=== PATIENT | male | born 1990 | race Caucasian/White ===

== ENCOUNTER → 2020-12-11 12:03 | Outpatient (BNVA) | payer OTHER, SELFPAY | PROVIDERS: Visit Provider Nurse Practitioner Family | DX: Z02.1 Encounter for pre-employment examination (principal) | CPT/HCPCS: 80307 ==

== ENCOUNTER 2023-02-25 21:44 | Observation (INO) | payer BC, SELFPAY ==
[2023-02-25 22:04] VITALS: BP 174/94; PULSE 100; RESP 20; TEMP 37.3; O2SAT 98; BMI 47.8
[2023-02-25 23:03] LABS: Alanine Aminotransferase 50 U/L (0-41); Albumin Level 3.8 g/dL (3.5-5.2); Alkaline Phosphatase 83 U/L (40-130); Blood Urea Nitrogen 14 mg/dL (6-20); Calcium 8.8 mg/dL (8.5-10.5); Carbon Dioxide 27 mmol/L (22-29); Chloride 96 mmol/L (98-107); Globulin 4.1 g/dL (1.3-4.6); Glomerular Filtration Rate 113.5 mL/min (90-130); Glucose 106 mg/dL (65-115); Lactic Sepsis W/Reflex 2.1 mmol/L (0.5-2.2); Osmolality Calculated 279 mOsm/kg (285-295); Sodium 134 mmol/L (136-145); Total Bilirubin 0.3 mg/dL (0.15-1.2); Total Protein 7.9 g/dL (6.6-8.7)
[2023-02-25 23:10] LABS: Procalcitonin 0.09 ng/mL (0-0.5)
[2023-02-25 23:16] LABS: Anion Gap 14.8 (5-19); Potassium 3.8 mmol/L (3.5-5.1)
[2023-02-25 23:17] LABS: Aspartate Amino Transferase 38 U/L (0-40)
--- NOTE | 2023-02-25 23:43 | ED_ITS ---
Documented by User: LESA Reid 02/26/23 17:09 HPI - Wound/Laceration General: Chief Complaint: Wound/Laceration Stated Complaint: left leg infection Time Seen by Provider: 02/25/23 23:43 History of Present Illness: 32-year-old male patient comes in today with increased pain and redness along with swelling to the left lower leg. Patient reports 1 week ago he had hit his funk against a metal toe hook. Patient had seen a medical provider in [place] and was started on oral antibiotics. Over the past 3 days the wound has increased in size and redness. Patient reports increased pain and discomfort with ambulation. Patient denies diabetes or chronic medical illnesses. Review of pharmaceutical record online noted clindamycin was the antibiotic that was filled on February 22. Associated symptoms: Reports chills, nausea and vomiting (1 episode) Review of Systems Const: Reports: chills GI: Reports: nausea and vomiting (1 episode) Musc: Reports: extremity pain and extremity swelling PFS ED PFSH: Medical History (Updated 02/26/23 @ 15:29 by Arash Huerta MD) Failure of outpatient treatment Morbid obesity with BMI of 45.0-49.9, adult Sleep apnea Surgical History (Updated 02/26/23 @ 02:39 by Zachary Kathleen MD) No pertinent past surgical history Family History (Updated 09/02/21 @ 13:41 by Lesa Gill LPN) Grandmother Heart disease Grandfather Heart disease Mother Hypertension Father Hypertension Social History (Updated 09/02/21 @ 13:41 by Lesa Gill LPN) Smoking and tobacco status: never smoked Alcohol intake: never Substance/Drug Use: never Adopted: No Caregiver/support person: No Lives independently: No Household members: family service: No Current occupational status: employed Sexually active: Yes Do you think of yourself as: Straight/Heterosexual Current gender identity: Male Physical Exam Const: COMMON NORMALS: alert HENMT: COMMON NORMALS: normocephalic HEAD & SCALP: normocephalic Neck/C-Spine: COMMON NORMALS: full ROM Resp: COMMON NORMALS: normal respiratory effort and clear to auscultation bilaterally AUSCULTATION: clear to auscultation bilaterally Cardio: COMMON NORMALS: regular rate and regular rhythm RATE: regular rate RHYTHM: regular rhythm Extremity: COMMON NORMALS: normal to inspection LEFT LOWER EXTREMITY: Yes lower leg (Large area of redness to anterior lower leg with a centralized large bulla) Neuro: SENSORIUM/ORIENTATION: Yes alert Skin: NARRATIVE SKIN EXAM: 7 cm large bulla ovoid with surrounding erythema approximately 30 cm in length and noncircumferential to the lower leg left side Course ED course: 0006, reviewed patient with Dr. Grier who examined the area and recommended CT scan of lower extremity and going ahead and starting broad-spectrum antibiotics. Vital Signs: Vital signs: Vital Signs Temperature 98.0 F 02/26/23 11:37 Pulse Rate 65 02/26/23 15:52 Respiratory Rate 16 02/26/23 15:52 Blood Pressure 138/85 02/26/23 15:52 Pulse Oximetry 99 02/26/23 15:52 Oxygen Delivery Me thod Room Air 02/26/23 15:52 MDM - Wound/Laceration Medical Decision Making Patient came in today due to increased pain along with redness and swelling to the left lower leg. Patient had a injury to the leg where he struck it against a metal toe hook on the vehicle over 1 week ago. Patient noticed increased redness and discomfort and sought medical treatment at a clinic in [place] and was prescribed clindamycin 300 mg 4 times a day on February 22. Patient came in tonight due to increasing pain and discomfort 1 episode of emesis. Differential diagnosis includes not limited to abscess, cellulitis, osteomyelitis. Lab Data 02/26/23 00:37 02/25/23 22:30 Radiology Impressions Lower Extremity CT 02/26/23 00:03 IMPRESSION: 1. There is a 14 cm x 2.5 cm x 5 cm area of edema and fat stranding in the soft tissues anterior to the mid diaphysis of the left tibia, suggestive of cellulitis. There is also a 3.7 cm phlegmon in the same soft tissues. There is no drainable abscess. 2. No acute fracture or osteomyelitis. Venous Duplex 02/26/23 02:36 IMPRESSION: No evidence of deep vein thrombosis. Laboratory Results WBC 12.15 10^3/uL (3.29-11.43) H 02/26/23 00:37 Corrected WBC Cancelled 02/25/23 22:36 RBC 4.64 10^6/uL (3.85-5.65) 02/26/23 00:37 Hgb 12.60 g/dL (11.27-16.99) 02/26/23 00:37 Hct 38.0 % (37-53) 02/26/23 00:37 MCV 81.9 fl (82-101) L 02/26/23 00:37 MCH 27.2 pg (27-33) 02/26/23 00:37 MCHC 33.2 g/dL (30-55) 02/26/23 00:37 RDW 13.3 % (12.1-15.1) 02/26/23 00:37 Plt Count 295 10^3/cmm (157-399) 02/26/23 00:37 MPV 8.9 fL (7.4-10.4) 02/26/23 00:37 Gran % Cancelled 02/25/23 22:36 Neut % (Auto) 75.8 % 02/26/23 00:37 Lymph % (Auto) 12.3 % 02/26/23 00:37 Woodward % (Auto) 10.4 % 02/26/23 00:37 Eos % (Auto) 0.8 % 02/26/23 00:37 Baso % (Auto) 0.3 % 02/26/23 00:37 Neut # (Auto) 9.21 10^3/uL (1.8-7.7) H 02/26/23 00:37 Lymph # (Auto) 1.5 10^3/uL (0.8-4.8) 02/26/23 00:37 Woodward # (Auto) 1.3 10^3/uL (0.2-0.9) H 02/26/23 00:37 Eos # (Auto) 0.1 10^3/uL (0.0-0.8) 02/26/23 00:37 Baso # (Auto) 0.0 10^3/uL (0.0-0.1) 02/26/23 00:37 Absolute Gran (auto) Cancelled 02/25/23 22:36 Nucleated RBC % (auto) 0 % 02/26/23 00:37 Nucleated RBCs # 0.0 /100WBC 02/26/23 00:37 ESR 99 mm/hr (0-10) H 02/26/23 00:37 Sodium 134 mmol/L (136-145) L 02/25/23 22:30 Potassium 3.8 mmol/L (3.5-5.1) 02/25/23 22:30 Chloride 96 mmol/L (98-107) L 02/25/23 22:30 Carbon Dioxide 27 mmol/L (22-29) 02/25/23 22:30 Anion Gap 14.8 (5-19) 02/25/23 22:30 BUN 14 mg/dL (6-20) 02/25/23 22:30 Creatinine 0.8 mg/dL (0.7-1.2) 02/25/23 22:30 GFR Calculation 113.5 mL/min (90-130) 02/25/23 22:30 Glucose 106 mg/dL (65-115) 02/25/23 22:30 Estimat Average Glucose 117 02/26/23 00:37 Hemoglobin A1c 5.7 % (4.0-6.0) 02/26/23 00:37 Calculated Osmolality 279 mOsm/kg (285-295) L 02/25/23 22:30 Lactic Acid 2.1 mmol/L (0.5-2.2) 02/25/23 22:30 Lactic Acid (Sepsis) 0.9 mmol/L (0.5-2.2) 02/26/23 02:09 Calcium 8.8 mg/dL (8.5-10.5) 02/25/23 22:30 Iron 21 ug/dL (59-158) L 02/25/23 22:30 TIBC 218 mcg/dl 02/25/23 22: % Saturation 9.6 % (20-50) L 02/25/23 22: Unsat Iron Binding 197 ug/dL (112-347) 02/25/23 22:30 Total Bilirubin 0.3 mg/dL (0.15-1.2) 02/25/23 22:30 AST 38 U/L (0-40) 02/25/23 22:30 ALT 50 U/L (0-41) H 02/25/23 22:30 Alkaline Phosphatase 83 U/L (40-130) 02/25/23 22:30 C-Reactive Protein 131.5 mg/L (0.0-4.9) H 02/25/23 22:30 Total Protein 7.9 g/dL (6.6-8.7) 02/25/23 22:30 Albumin 3.8 g/dL (3.5-5.2) 02/25/23 22:30 Globulin 4.1 g/dL (1.3-4.6) 02/25/23 22:30 Triglycerides 95 mg/dL (0-150) 02/25/23 22:30 Cholesterol 107 mg/dL (0-200) 02/25/23 22:30 LDL Cholesterol, Calc 58 mg/dL (50-129) 02/25/23 22:30 HDL Cholesterol 30 mg/dL (60-100) L 02/25/23 22:30 LDL/HDL Ratio 1.93 RATIO (0.00-3.22) 02/25/23 22:30 Cholesterol/HDL Ratio 3.57 mg/dL (1.0-5.00) 02/25/23 22:30 Vitamin B12 Cancelled 02/25/23 22:30 Procalcitonin 0.08 ng/mL (0-0.5) 02/25/23 22:30 Procalcitonin 0.09 ng/mL (0-0.5) 02/25/23 22:30 TSH 3.27 uIU/mL (0.27-4.20) 02/25/23 22:30 Discharge Plan Discharge Patient Disposition: Admitted As Inpatient Admit Provider: Zachary Kathleen Clinical Impression: Cellulitis of left leg Condition: Stable Coding Level of Care Code ED Employee Wellness/Fitness Coordinator for Chg Fwd Documented by User: Shola Grier DO 02/26/23 03:28 HPI - Wound/Laceration General: Chief Complaint: Wound/Laceration Stated Complaint: left leg infection Time Seen by Provider: 02/25/23 23:43 PFSH ED PFSH: Medical History (Updated 02/26/23 @ 15:29 by Arash Huerta MD) Failure of outpatient treatment Morbid obesity with BMI of 45.0-49.9, adult Sleep apnea Surgical History (Updated 02/26/23 @ 02:39 by Zachary Kathleen MD) No pertinent past surgical history Family History (Updated 09/02/21 @ 13:41 by Lesa Gill LPN) Grandmother Heart disease Grandfather Heart disease Mother Hypertension Father Hypertension Social History (Updated 09/02/21 @ 13:41 by Lesa Gill LPN) Smoking and tobacco status: never smoked Alcohol intake: never Substance/Drug Use: never Adopted: No Caregiver/support person: No Lives independently: No Household members: family service: No Current occupational status: employed Sexually active: Yes Do you think of yourself as: Straight/Heterosexual Current gender identity: Male Course Vital Signs: Vital signs: Vital Signs Temperature 98.0 F 02/26/23 11:37 Pulse Rate 65 02/26/23 15:52 Respiratory Rate 16 02/26/23 15:52 Blood Pressure 138/85 02/26/23 15:52 Pulse Oximetry 99 02/26/23 15:52 Oxygen Delivery Me thod Room Air 02/26/23 15:52 MDM - Wound/Laceration Medical Decision Making Patient came in today due to increased pain along with redness and swelling to the left lower leg. Patient had a injury to the leg where he struck it against a metal toe hook on the vehicle over 1 week ago. Patient noticed increased redness and discomfort and sought medical treatment at a clinic in [place] and was prescribed clindamycin 300 mg 4 times a day on February 22. Patient came in tonight due to increasing pain and discomfort 1 episode of emesis. Differential diagnosis includes not limited to abscess, cellulitis, osteomyelitis. This patient was originally seen by LESA Montiel.? I agree with his history, evaluation, and treatment. Patient has significant cellulitis that is failed outpatient therapy with clindamycin. White blood cell count is 12. Temperature is 99.1. Lactic acid is only 2.1 but CRP 131 sed rate is 99. He has received IV Zosyn and vancomycin in the ER. He will be admitted for cellulitis with failure of outpatient therapy. CT does not show a drainable abscess or any sign of necrotizing fasciitis. Lab Data 02/26/23 00:37 02/25/23 22:30 Radiology Impressions Lower Extremity CT 02/26/23 00:03 IMPRESSION: 1. There is a 14 cm x 2.5 cm x 5 cm area of edema and fat stranding in the soft tissues anterior to the mid diaphysis of the left tibia, suggestive of cellulitis. There is also a 3.7 cm phlegmon in the same soft tissues. There is no drainable abscess. 2. No acute fracture or osteomyelitis. Venous Duplex 02/26/23 02:36 IMPRESSION: No evidence of deep vein thrombosis. Laboratory Results WBC 12.15 10^3/uL (3.29-11.43) H 02/26/23 00:37 Corrected WBC Cancelled 02/25/23 22:36 RBC 4.64 10^6/uL (3.85-5.65) 02/26/23 00:37 Hgb 12.60 g/dL (11.27-16.99) 02/26/23 00:37 Hct 38.0 % (37-53) 02/26/23 00:37 MCV 81.9 fl (82-101) L 02/26/23 00:37 MCH 27.2 pg (27-33) 02/26/23 00:37 MCHC 33.2 g/dL (30-55) 02/26/23 00:37 RDW 13.3 % (12.1-15.1) 02/26/23 00:37 Plt Count 295 10^3/cmm (157-399) 02/26/23 00:37 MPV 8.9 fL (7.4-10.4) 02/26/23 00:37 Gran % Cancelled 02/25/23 22:36 Neut % (Auto) 75.8 % 02/26/23 00:37 Lymph % (Auto) 12.3 % 02/26/23 00:37 Woodward % (Auto) 10.4 % 02/26/23 00:37 Eos % (Auto) 0.8 % 02/26/23 00:37 Baso % (Auto) 0.3 % 02/26/23 00:37 Neut # (Auto) 9.21 10^3/uL (1.8-7.7) H 02/26/23 00:37 Lymph # (Auto) 1.5 10^3/uL (0.8-4.8) 02/26/23 00:37 Woodward # (Auto) 1.3 10^3/uL (0.2-0.9) H 02/26/23 00:37 Eos # (Auto) 0.1 10^3/uL (0.0-0.8) 02/26/23 00:37 Baso # (Auto) 0.0 10^3/uL (0.0-0.1) 02/26/23 00:37 Absolute Gran (auto) Cancelled 02/25/23 22:36 Nucleated RBC % (auto) 0 % 02/26/23 00:37 Nucleated RBCs # 0.0 /100WBC 02/26/23 00:37 ESR 99 mm/hr (0-10) H 02/26/23 00:37 Sodium 134 mmol/L (136-145) L 02/25/23 22:30 Potassium 3.8 mmol/L (3.5-5.1) 02/25/23 22:30 Chloride 96 mmol/L (98-107) L 02/25/23 22:30 Carbon Dioxide 27 mmol/L (22-29) 02/25/23 22:30 Anion Gap 14.8 (5-19) 02/25/23 22:30 BUN 14 mg/dL (6-20) 02/25/23 22:30 Creatinine 0.8 mg/dL (0.7-1.2) 02/25/23 22:30 GFR Calculation 113.5 mL/min (90-130) 02/25/23 22:30 Glucose 106 mg/dL (65-115) 02/25/23 22:30 Estimat Average Glucose 117 02/26/23 00:37 Hemoglobin A1c 5.7 % (4.0-6.0) 02/26/23 00:37 Calculated Osmolality 279 mOsm/kg (285-295) L 02/25/23 22:30 Lactic Acid 2.1 mmol/L (0.5-2.2) 02/25/23 22:30 Lactic Acid (Sepsis) 0.9 mmol/L (0.5-2.2) 02/26/23 02:09 Calcium 8.8 mg/dL (8.5-10.5) 02/25/23 22:30 Iron 21 ug/dL (59-158) L 02/25/23 22:30 TIBC 218 mcg/dl 02/25/23 22:30 % Saturation 9.6 % (20-50) L 02/25/23 22:30 Unsat Iron Binding 197 ug/dL (112-347) 02/25/23 22:30 Total Bilirubin 0.3 mg/dL (0.15-1.2) 02/25/23 22:30 AST 38 U/L (0-40) 02/25/23 22: ALT 50 U/L (0-41) H 02/25/23 22:30 Alkaline Phosphatase 83 U/L (40-130) 02/25/23 22:30 C-Reactive Protein 131.5 mg/L (0.0-4.9) H 02/25/23 22:30 Total Protein 7.9 g/dL (6.6-8.7) 02/25/23 22: Albumin 3.8 g/dL (3.5-5.2) 02/25/23 22: Globulin 4.1 g/dL (1.3-4.6) 02/25/23 22:30 Triglycerides 95 mg/dL (0-150) 02/25/23 22: Cholesterol 107 mg/dL (0-200) 02/25/23 22:30 LDL Cholesterol, Calc 58 mg/dL (50-129) 02/25/23 22: HDL Cholesterol 30 mg/dL (60-100) L 02/25/23 22:30 LDL/HDL Ratio 1.93 RATIO (0.00-3.22) 02/25/23 22: Cholesterol/HDL Ratio 3.57 mg/dL (1.0-5.00) 02/25/23 22:30 Vitamin B12 Cancelled 02/25/23 22:30 Procalcitonin 0.08 ng/mL (0-0.5) 02/25/23 22:30 Procalcitonin 0.09 ng/mL (0-0.5) 02/25/23 22:30 TSH 3.27 uIU/mL (0.27-4.20) 02/25/23 22:30 All radiology interpretation(s) finalized by discharge Discharge Plan Discharge Patient Disposition: Admitted As Inpatient Admit Provider: Zachary Kathleen Clinical Impression: Cellulitis of left leg Condition: Stable Coding Level of Care Code ED Employee Wellness/Fitness Coordinator for Arleneg Sandhya
[2023-02-26] VITALS (13 sets, daily range): BP systolic 130–142; BP diastolic 75–85; PULSE 65–95; RESP 16–18; TEMP 36.4–37; O2SAT 94–99
--- NOTE | 2023-02-26 00:03 | CTR_ITS ---
PROCEDURE INFORMATION: Exam: CT Left Lower Extremity With Contrast; Lower Leg Exam date and time: 02/26/2023 12:58 AM Age: 32 years old Clinical indication: Swelling, leg or foot; Patient HX: Abscess with redness and swelling to mid tib/fib anterior aspect. TECHNIQUE: Imaging protocol: CT of the left lower extremity with intravenous contrast was performed. Exam focused on the lower leg. Radiation optimization: All CT scans at this facility use at least one of these dose optimization techniques: automated exposure control; mA and/or kV adjustment per patient size (includes targeted exams where dose is matched to clinical indication); or iterative reconstruction. Contrast material: OMNI 350; Contrast volume: 100 ml; Contrast route: INTRAVENOUS (IV); REPORTING DATA: Count of CT and Cardiac NM exams in prior 12 months: This patient has received 0 known CTs and 0 known cardiac nuclear medicine studies in the 12 months prior to the current study. COMPARISON: No relevant prior studies available. RADIATION DOSE METRICS: Total DLP (mGy-cm): 1692.06 FINDINGS: Bones/joints: There is no acute fracture, subluxation, dislocation, bone erosion or periosteal reaction. Soft tissues: There is a 14 cm x 2.5 cm x 5 cm area of edema and fat stranding in the soft tissues anterior to the mid diaphysis of the left tibia, suggestive of cellulitis, There is also a 3.7 cm phlegmon in the same soft tissues. There is no drainable abscess. CT/CT lower leg LT w con [id number] IMPRESSION: 1. There is a 14 cm x 2.5 cm x 5 cm area of edema and fat stranding in the soft tissues anterior to the mid diaphysis of the left tibia, suggestive of cellulitis. There is also a 3.7 cm phlegmon in the same soft tissues. There is no drainable abscess. 2. No acute fracture or osteomyelitis.
[2023-02-26 00:28] LABS: Reflex Lactate Order REFLEX LACTIC ORDERD
[2023-02-26 00:45] LABS: Basophils % 0.3 %; Eosinophils # 0.1 10^3/uL (0.0-0.8); Eosinophils % 0.8 %; Lymphocytes # 1.5 10^3/uL (0.8-4.8); Lymphocytes % 12.3 %; Mean Corpuscular HGB Conc 33.2 g/dL (30-55); Mean Corpuscular Hemoglobin 27.2 pg (27-33); Mean Corpuscular Volume 81.9 fl (82-101); Mean Platelet Volume 8.9 fL (7.4-10.4); Monocytes # 1.3 10^3/uL (0.2-0.9); Monocytes % 10.4 %; Neutrophils # 9.21 10^3/uL (1.8-7.7); Neutrophils % 75.8 %; Nucleated Red Blood Cells % 0 %; Platelet Count 295 10^3/cmm (157-399); Red Blood Count 4.64 10^6/uL (3.85-5.65); Red Cell Distribution Width 13.3 % (12.1-15.1); White Blood Count 12.15 10^3/uL (3.29-11.43)
[2023-02-26] MEDS: iohexol 350 mg/mL 500 mL Btl (per mL) IV (01:02)
[2023-02-26] MEDS: piperacillin-tazobactam 3.375 GM in sodium chloride 0.9% (plus) 50 ML IV ×3 (01:23→17:59)
[2023-02-26] MEDS: ketorolac 30 mg/mL INJ 15 MG IVP (01:47)
[2023-02-26] MEDS: morphine 4 mg/mL SDV 1 mL IVP (01:47)
[2023-02-26] MEDS: ondansetron 2 mg/ML SDV 2 mL 4 MG IVP (01:48)
[2023-02-26] MEDS: vancomycin 1,000 MG in sodium chloride 0.9% 250 ML 250 MG IV (01:48)
[2023-02-26 02:14] LABS: Erythrocyte Sedimentation Rate 99 mm/hr (0-10)
[2023-02-26 02:28] LABS: C Reactive Protein 131.5 mg/L (0.0-4.9)
--- NOTE | 2023-02-26 02:36 | USR_ITS ---
PROCEDURE INFORMATION: Exam: US Duplex Left Lower Extremity Veins, Limited Exam date and time: 02/26/2023 7:04 AM Age: 32 years old Clinical indication: Pain; Leg, lower; Left; Additional info: Swelling TECHNIQUE: Imaging protocol: Real-time duplex ultrasound of the left extremity with 2-D frey scale, color Doppler flow and spectral waveform analysis including responses to compression and other maneuvers (when performed) with image documentation. Limited exam focused on the left lower extremity veins. COMPARISON: CT lower leg LT w con [id number] 02/26/2023 12:58 AM FINDINGS: Left deep veins: Unremarkable. The common femoral, femoral, proximal profunda femoral and popliteal veins are patent without thrombus. Normal Doppler waveforms. Normal compressibility and/or augmentation response. Superficial veins: Unremarkable. Saphenofemoral junction is patent without thrombus. Soft tissues: Unremarkable. US/CV venous duplex [facility] [id number] IMPRESSION: No evidence of deep vein thrombosis.
[2023-02-26 02:37] LABS: Lactic Acid level (Lactate) 0.9 mmol/L (0.5-2.2)
--- NOTE | 2023-02-26 02:38 | PM.HP ---
Providers/Chief Complaint Chief Complaint: left leg infection History of Present Illness Basilio Aly is a 32 year old male with a past medical history of morbid obesity, who presents to [facility] emergency room for left leg anterior funk erythema, swelling, tenderness, warmth. Patient tells me that about a week ago he hit his funk against a metal toe , he saw his primary care provider and was started on clindamycin, has been taking clindamycin for the last 4 days however he has developed increasing erythema, swelling, tenderness, warmth over the location. Also does report subjective fevers and chills, no nausea, vomiting, abdominal pain. Review of Systems Const: Denies: fever(s) Card: Denies: chest pain Resp: Denies: dyspnea GI: Denies: abdominal pain Medications/Allergies Home Medications Medication Instructions Recorded Confirmed Last Taken Type No Known Home Medications 09/02/21 09/02/21 Unknown History Allergies Allergy/AdvReac Type Severity Reaction Status Date / Time No Known Allergies Allergy Verified 09/02/21 13:39 PFSH Acute PFSH: Medical History (Updated 02/26/23 @ 02:40 by Zachary Kathleen MD) Morbid obesity with BMI of 45.0-49.9, adult Surgical History (Updated 02/26/23 @ 02:39 by Zachary Kathleen MD) No pertinent past surgical history Family History (Updated 09/02/21 @ 13:41 by Lesa Gill LPN) Grandmother Heart disease Grandfather Heart disease Mother Hypertension Father Hypertension Social History (Updated 09/02/21 @ 13:41 by Lesa Gill LPN) Smoking and tobacco status: never smoked Alcohol intake: never Substance/Drug Use: never Adopted: No Caregiver/support person: No Lives independently: No Household members: family service: No Current occupational status: employed Sexually active: Yes Do you think of yourself as: Straight/Heterosexual Current gender identity: Male Vitals/I&O/Wt Last Vital Signs Temp 99.1 F 02/25/23 22:04 Pulse 92 02/26/23 01:59 Resp 18 02/26/23 01:59 BP 130/75 02/26/23 01:59 Pulse Ox 97 02/26/23 01:59 O2 Del Method Room Air 02/26/23 01:59 Weight last 48 hrs Weight 146.964 kg Physical Exam Const: COMMON NORMALS: no acute distress and patient oriented x3 HENMT: COMMON NORMALS: normocephalic HEAD & SCALP: normocephalic Neck/C-Spine: COMMON NORMALS: no JVD Resp: COMMON NORMALS: normal respiratory effort, No retractions, No use of accessory muscles and clear to auscultation bilaterally AUSCULTATION: clear to auscultation bilaterally Cardio: COMMON NORMALS: regular rate, regular rhythm, S1 normal heart sound present and S2 normal heart sound present RATE: regular rate RHYTHM: regular rhythm HEART SOUNDS: S1 normal heart sound present and S2 normal heart sound present GI: COMMON NORMALS: Normal to inspection, nondistended, normoactive bowel sounds present, Soft to palpation and non-tender Extremity: COMMON NORMALS: no pedal edema NARRATIVE EXTREMITY EXAM: Left leg erythema, swelling, area of induration, measuring 10 x 10 cm, left anterior funk Neuro: COMMON NORMALS: patient oriented x3 Psych: COMMON NORMALS: mental status grossly normal Data 02/26/23 00:37 02/25/23 22:30 Micro: Microbiology 02/25/23 00:00 Blood Culture - Preliminary Blood SPECIMEN COLLECTED 02/25/23 23:53 Blood Culture - Preliminary Blood SPECIMEN COLLECTED A&P Assessment and plan (1) Cellulitis of left leg: Plan Cellulitis of left leg -CT scan CT/CT lower leg LT w con [id number] IMPRESSION: 1. ? There is a 14 cm x 2.5 cm x 5 cm area of edema and fat stranding in the soft tissues anterior to the mid diaphysis of the left tibia, suggestive of cellulitis.? There is also a 3.7 cm phlegmon in the same soft tissues. There is no drainable abscess. 2. ? No acute fracture or osteomyelitis. -ESR 99, CRP 131.5 Plan -Admit to [facility] -Follow blood cultures -Continue vancomycin, Zosyn -Monitor clinical status, will consider consulting general surgery based on clinical progress for possible debridement -We will have to find out when patient's last tetanus shot was, will have to consider Tdap -Venous ultrasound for DVT -Full code -Lovenox for DVT prophylaxis Attestations Medical Necessity Statement*: Patient requires hospitalization, inpatient, greater than 2 midnights, for cellulitis left leg Diagnoses Cellulitis of left leg L03.116
--- NOTE | 2023-02-26 02:51 | PC.NURSE ---
Report called to CANELO Piña on Med-Surg. All questions and concerns addressed at time of report.
[2023-02-26] MEDS: sodium chloride 0.9% 1,000 ML 75 ML IV ×2 (03:24→18:00)
[2023-02-26] MEDS: enoxaparin 40 mg/0.4 mL Syringe SUBCUT (03:24)
[2023-02-26] MEDS: pantoprazole 40 mg SDV IVP (03:29)
[2023-02-26 03:42] LABS: Estmated Average Glucose 117; Hemoglobin A1C 5.7 % (4.0-6.0)
[2023-02-26 04:09] LABS: Chol HDL Ratio 3.57 mg/dL (1.0-5.00); Cholesterol 107 mg/dL (0-200); HDL Cholesterol 30 mg/dL (60-100); LDL Cholesterol Calculated 58 mg/dL (50-129); LDL HDL Ratio 1.93 RATIO (0.00-3.22); Thyroid Stimulating Hormone 3.27 uIU/mL (0.27-4.20); Triglycerides 95 mg/dL (0-150)
[2023-02-26] MEDS: vancomycin 2,000 MG/400 ML PIGGYBACK 200 MG IV ×3 (06:29→22:14)
[2023-02-26] MEDS: acetaminophen 325 mg Tablet 650 MG PO (09:06)
--- NOTE | 2023-02-26 12:25 | P.PN_ITS ---
Subjective Subjective: Admitted overnight. H&P and labs. Patient laying comfortably in bed. Denies any nausea, vomiting, headache. Lab work appreciated for leukocytosis of 12.5, hemoglobin of 12.6, CBC showing mild hyponatremia 134, stable creatinine 0.8, A1c of 5.7 patient has remained hemodynamically stable and afebrile since admission. Vitals/I&O/Wt Last Vital Signs Temp 98.0 F 02/26/23 11:37 Pulse 82 02/26/23 11:37 Resp 16 02/26/23 11:37 BP 130/81 02/26/23 11:37 Pulse Ox 96 02/26/23 11:37 O2 Del Method Room Air 02/26/23 11:37 02/25/23 02/26/23 02/26/23 22:59 06:59 14:59 Intake Total 300 / 300 520 / 520 Output Total 500 / 500 Balance -200 / -200 520 / 520 Weight last 48 hrs Weight 146.964 kg Physical Exam Const: COMMON NORMALS: no acute distress and patient oriented x3 HENMT: COMMON NORMALS: normocephalic HEAD & SCALP: normocephalic Neck/C-Spine: COMMON NORMALS: no JVD Resp: COMMON NORMALS: normal respiratory effort, No retractions, No use of accessory muscles and clear to auscultation bilaterally AUSCULTATION: clear to auscultation bilaterally Cardio: COMMON NORMALS: no JVD, regular rate, regular rhythm, S1 normal heart sound present and S2 normal heart sound present RATE: regular rate RHYTHM: regular rhythm HEART SOUNDS: S1 normal heart sound present and S2 normal heart sound present GI: COMMON NORMALS: Normal to inspection, nondistended, normoactive bowel sounds present, Soft to palpation and non-tender PALPATION: Yes Soft to palpation Extremity: COMMON NORMALS: no pedal edema NARRATIVE EXTREMITY EXAM: Left leg erythema, swelling, area of induration, measuring 10 x 10 cm, left anterior funk Neuro: COMMON NORMALS: patient oriented x3 Psych: COMMON NORMALS: mental status grossly normal Skin: OTHER: Data 02/26/23 00:37 02/25/23 22:30 Micro: Microbiology 02/25/23 00:00 Blood Culture - Preliminary Blood SPECIMEN COLLECTED 02/25/23 23:53 Blood Culture - Preliminary Blood SPECIMEN COLLECTED A&P Assessment and plan (1) Cellulitis of left leg: (2) Failure of outpatient treatment: Plan Cellulitis of left leg: Significant. Failure to outpatient treatment. Appreciate CT leg results with concerning for significant cellulitis and possible phlegmon without any abscess to drain. Negative for osteomyelitis. Continue with empiric vancomycin and Zosyn. Check MRSA swab. If does not improve will consider surgical consultation for possible I&D A1c 5.7 Full code Lovenox for DVT prophylaxis Regular diet Attestations Medical Necessity Statement*: Requires further hospitalization for management of significant cellulitis with phlegmon Diagnoses Cellulitis of left leg L03.116 Failure of outpatient treatment Z78.9
[2023-02-26 13:25] LABS: Iron 21 ug/dL (59-158)
[2023-02-26 13:32] LABS: Procalcitonin 0.08 ng/mL (0-0.5)
[2023-02-26 13:35] LABS: Percent Saturation 9.6 % (20-50); Total Iron Binding Capacity 218 mcg/dl; Unsaturated Iron Binding 197 ug/dL (112-347)
[2023-02-26] MEDS: morphine 4 mg/mL SDV 1 mL 2 MG IVP (15:00)
[2023-02-27] VITALS (7 sets, daily range): BP systolic 130–165; BP diastolic 75–106; PULSE 71–96; RESP 14–18; TEMP 36.3–37.1; O2SAT 97–99
[2023-02-27] MEDS: morphine 4 mg/mL SDV 1 mL 2 MG IVP (00:31)
[2023-02-27] MEDS: enoxaparin 40 mg/0.4 mL Syringe SUBCUT (02:35)
[2023-02-27] MEDS: piperacillin-tazobactam 3.375 GM in sodium chloride 0.9% (plus) 50 ML IV ×2 (02:35→16:15)
[2023-02-27] MEDS: pantoprazole 40 mg SDV IVP (02:35)
[2023-02-27 04:35] LABS: Basophils % 0.3 %; Eosinophils # 0.1 10^3/uL (0.0-0.8); Eosinophils % 1.6 %; Hematocrit 39.8 % (37-53); Lymphocytes # 1.4 10^3/uL (0.8-4.8); Lymphocytes % 16.2 %; Mean Corpuscular HGB Conc 31.9 g/dL (30-55); Mean Corpuscular Hemoglobin 26.8 pg (27-33); Mean Platelet Volume 8.6 fL (7.4-10.4); Monocytes # 0.8 10^3/uL (0.2-0.9); Monocytes % 9.6 %; Neutrophils % 70.6 %; Nucleated Red Blood Cells % 0 %; Platelet Count 274 10^3/cmm (157-399); Red Blood Count 4.74 10^6/uL (3.85-5.65); Red Cell Distribution Width 13.5 % (12.1-15.1); White Blood Count 8.65 10^3/uL (3.29-11.43)
[2023-02-27 04:52] LABS: Alanine Aminotransferase 41 U/L (0-41); Albumin Level 3.4 g/dL (3.5-5.2); Alkaline Phosphatase 74 U/L (40-130); Aspartate Amino Transferase 21 U/L (0-40); Blood Urea Nitrogen 10 mg/dL (6-20); Calcium 8.5 mg/dL (8.5-10.5); Carbon Dioxide 24 mmol/L (22-29); Chloride 99 mmol/L (98-107); Globulin 3.6 g/dL (1.3-4.6); Glomerular Filtration Rate 113.5 mL/min (90-130); Glucose 100 mg/dL (65-115); Magnesium 2.4 mg/dL (1.7-2.3); Osmolality Calculated 271 mOsm/kg (285-295); Phosphorus 3.4 mg/dL (2.5-4.5); Sodium 131 mmol/L (136-145); Total Bilirubin 0.4 mg/dL (0.15-1.2)
[2023-02-27 05:16] LABS: Folate Level 9.6 ng/mL (4.5-32.2); Vancomycin Trough 20.7 ug/mL (10-15)
[2023-02-27] MEDS: vancomycin 2,000 MG/400 ML PIGGYBACK 200 MG IV (10:07)
--- NOTE | 2023-02-27 17:22 | P.CONIM_ITS ---
Providers/Reason For Consult Consulting Physician/Specialty*: Orthopedics Reason for Consult*: Left leg pain Attending Physician: Rivera Epperson History of Present Illness History of Present Illness Basilio Aly is a 32 year old male who presented to the emergency room on 02/25/2023 due to increased left leg pain and swelling. Describes an event where approximately a 1 week ago struck a metal object with his left funk. [place] immediate pain that was sharp stabbing in nature he states that over the last week he has had increased pain and swelling with an area of a blister that formed on the front portion of his left funk region. He presented to the emergency room where the hospitalist team admitted him orthopedics was consulted and he was evaluated in room 267. Continued to have pain and swelling in the left leg region. Had a blister formation that he states has gotten bigger since the injury. He denies any joint pains denies any falls any loss of conscious in the injury. He just denies any fevers at home but the pain has increased. Upon present presenting to the emergency room he was then admitted for more definitive management. Orthopedics was consulted. Describes pain in the left leg any movement makes it much worse. He has had area of blistering to the anterior aspect of the left tibial region. Denies any ankle pain knee pain denies any hip pain. Review of Systems Const: Denies: fever(s) Card: Denies: chest pain Resp: Denies: dyspnea GI: Denies: abdominal pain Medications/Allergies Home Medications Medication Instructions Recorded Confirmed Last Taken Type clindamycin HCl 300 mg capsule 300 mg PO QID 02/26/23 02/26/23 02/25/23 History ibuprofen 800 mg tablet 800 mg PO TID PRN Pain 02/26/23 02/26/23 Unknown History Allergies Allergy/AdvReac Type Severity Reaction Status Date / Time No Known Allergies Allergy Verified 02/26/23 10:19 Current Medications Generic Name Dose Route Start Last Admin Trade Name Freq PRN Reason Stop Dose Admin Acetaminophen 650 mg 02/26/23 03:09 02/26/23 09:06 Acetaminophen 325 Mg Tablet PO 650 mg Q6H PRN Administration Mild/Mod Pain Or Temp >/= 101 Enoxaparin Sodium 40 mg 02/26/23 03:09 02/27/23 02:35 Enoxaparin 40 Mg/0.4 Ml Syringe SUBCUT 40 mg Q24H KEITH Administration Sodium Chloride 1,000 mls @ 75 mls/hr 02/26/23 03:09 02/26/23 18:00 Sodium Chloride 0.9% IV 75 mls/hr .[id number] KEITH Administration Piperacillin Sod/Tazobactam 50 mls @ 12.5 mls/hr 02/26/23 09:30 02/27/23 16:15 Sod 3.375 gm/ Sodium Chloride IV 12.5 mls/hr Q8H KEITH Administration Vancomycin/PEG/NADA/Lysine/Water 2,000 mg in 400 mls @ 200 mls/hr 02/27/23 10:00 02/27/23 16:17 Vancocin IV Infused Q12H KEITH Infusion Morphine Sulfate 2 mg 02/26/23 03:09 02/27/23 00:31 Morphine 4 Mg/Ml Sdv 1 Ml IVP 2 mg Q4H PRN Administration SEVERE PAIN Pantoprazole Sodium 40 mg 02/26/23 03:09 02/27/23 02:35 Pantoprazole 40 Mg Sdv IVP 40 mg Q24H KEITH Administration PFSH Acute PFSH: Medical History (Updated 02/26/23 @ 15:29 by Arash Huerta MD) Failure of outpatient treatment Morbid obesity with BMI of 45.0-49.9, adult Sleep apnea Surgical History (Updated 02/26/23 @ 02:39 by Zachary Kathleen MD) No pertinent past surgical history Family History (Updated 09/02/21 @ 13:41 by Lesa Gill LPN) Grandmother Heart disease Grandfather Heart disease Mother Hypertension Father Hypertension Social History (Updated 09/02/21 @ 13:41 by Lesa Gill LPN) Smoking and tobacco status: never smoked Alcohol intake: never Substance/Drug Use: never Adopted: No Caregiver/support person: No Lives independently: No Household members: family service: No Current occupational status: employed Sexually active: Yes Do you think of yourself as: Straight/Heterosexual Current gender identity: Male Vitals/I&O/Wt Last Vital Signs Temp 98.0 F 02/27/23 16:00 Pulse 88 02/27/23 16:00 Resp 17 02/27/23 16:00 BP 145/85 02/27/23 16:00 Pulse Ox 97 02/27/23 16:00 O2 Del Method Room Air 02/27/23 16:00 02/27/23 02/27/23 02/27/23 06:59 14:59 22:59 Intake Total 400 / 2900 770 / 770 400 / 1170 Output Total 1225 / 3475 1999 Balance -825 / -575 -1230 / -1230 400 / -830 Weight last 48 hrs Weight 324 lb Physical Exam Narrative: Patient is alert and orient x3 is good general appearance normal mood and affect is morbidly obese. Has obvious swelling with redness in area of blistering to the anterior aspect of the mid tibial region. Appears to have purulence in the blister with some evidence of purulence. Large area of redness consistent with cellulitis to the left tibia. He has 2+ edema in his left foot he is able to dorsiflex plantarflex he can wiggle all digits he has normal sensation light touch. Dorsalis pedis posterior pulses are palpable. He is able to flex and extend the left knee without any problems he has negative logroll. He has full range of motion of the right lower extremity at the hip knee and ankle. Normal station light touch. He does have 1+ edema in the right lower extremity as well. He has no palpable pain in the lumbar thoracic or cervical spine full range of motion of both upper extremities can flex and extend laterally bend and rotate cervical spine without any problems. No palpable pain in the shoulder elbow or wrist hands warm good cap refill radial pulses are palpable. HENMT: COMMON NORMALS: normocephalic and atraumatic HEAD & SCALP: normocephalic and atraumatic Resp: COMMON NORMALS: normal respiratory effort Cardio: COMMON NORMALS: regular rate and regular rhythm RATE: regular rate RHYTHM: regular rhythm GI: COMMON NORMALS: Soft to palpation and non-tender PALPATION: Yes Soft to palpation : COMMON NORMALS: Yes no CVA tenderness BLADDER/KIDNEY EXAM: Yes no CVA tenderness Back/Pelvis: COMMON NORMALS: no CVA tenderness Psych: COMMON NORMALS: mental status grossly normal Data 02/27/23 04:11 02/27/23 04:11 Micro: Microbiology 02/25/23 00:00 Blood Culture - Preliminary Blood NEGATIVE TO DATE 02/25/23 23:53 Blood Culture - Preliminary Blood NEGATIVE TO DATE Other CT: Radiologist's impression: CT/CT lower leg LT w con [id number] IMPRESSION: 1. ? There is a 14 cm x 2.5 cm x 5 cm area of edema and fat stranding in the soft tissues anterior to the mid diaphysis of the left tibia, suggestive of cellulitis.? There is also a 3.7 cm phlegmon in the same soft tissues. There is no drainable abscess. 2. ? No acute fracture or osteomyelitis. A&P Assessment and plan (1) Cellulitis of left leg: At this point appears that he has a blister to the anterior aspect of his left leg with cellulitis. Would defer to the medicine team for antibiotic treatment. Consideration of draining of the blister with application of a Betadine dressing to clean the the area. Would recommend a wet-to-dry dressing to keep clean continue IV antibiotics for cellulitis treatment. At this point would not recommend any surgical intervention. Orthopedics will be available should anything change. More than 50% of the time spent with the patient today involved coordination of care, counseling and discussion of conservative versus surgical treatment options. Total amount of time spent with the patient was 32 minutes. Coding Level of Care Code Acute Code for Chg Fwd Diagnoses Cellulitis of left leg L03.116 Time Spent (min) 32
--- NOTE | 2023-02-27 18:40 | PC.NURSE ---
PT EDUC ON AMA PROCESS. RISKS AND BENEFITS OF LEAVING AND STAYING TO CONTINUE WITH [facility]X THERAPY.
--- NOTE | 2023-02-27 18:49 | PM.PN ---
Subjective Subjective: Swelled area amid cellulitis had some drainage overnight with yellow-green appearing fluid from the superior pole. Discussed with him request for assessment by surgery with consideration of repeat imaging and/or I&D with suspected maturation into an abscess which may in that case benefit from drainage, although initially there was no drainable collection. Requested consultation with orthopedics who came to see him, however, he had stated to nursing staff and on my secondary visit confirms that he is decided to transfer for further care and requesting specifically for [facility] due to his health insurance. Discussed with him that transfer may not be immediately available especially if there are no beds and discussed with him orthopedic consultation. He verbalized understanding and states that he had decided to proceed transfer for further care instead. Vitals/I&O/Wt Last Vital Signs Temp 98.0 F 02/27/23 16:00 Pulse 88 02/27/23 16:00 Resp 17 02/27/23 16:00 BP 145/85 02/27/23 16:00 Pulse Ox 97 02/27/23 16:00 O2 Del Method Room Air 02/27/23 16:00 02/27/23 02/27/23 02/27/23 06:59 14:59 22:59 Intake Total 400 / 2900 770 / 770 1880 / 2650 Output Total 1225 / 3475 1999 / 1999 600 / 2600 Balance -825 / -575 -1230 / -1230 1280 / 50 Weight last 48 hrs Weight 146.964 kg Physical Exam Const: COMMON NORMALS: patient oriented x3 and alert GENERAL APPEARANCE: cooperative NUTRITIONAL APPEARANCE: obese ORIENTATION/CONSCIOUSNESS: Yes awake HENMT: COMMON NORMALS: oropharynx normal Neck/C-Spine: COMMON NORMALS: no JVD Resp: COMMON NORMALS: normal respiratory effort and clear to auscultation bilaterally AUSCULTATION: clear to auscultation bilaterally Cardio: COMMON NORMALS: no JVD, regular rhythm, S1 normal heart sound present, S2 normal heart sound present and No murmurs present (Cardio) RHYTHM: regular rhythm HEART SOUNDS: S1 normal heart sound present and S2 normal heart sound present GI: COMMON NORMALS: Normal to inspection, nondistended, normoactive bowel sounds present, Soft to palpation and non-tender PALPATION: Yes Soft to palpation Extremity: COMMON NORMALS: no joint enlargement and no pedal edema Neuro: COMMON NORMALS: patient oriented x3 and moves all extremities SENSORIUM/ORIENTATION: Yes alert Skin: NARRATIVE SKIN EXAM: Erythema, induration of anterior L lower leg, with central area of circumscribed swelling about 10cm by 15 cm, currently without active drainage, but dried yellowish stain on bedsheet. Data 02/27/23 04:11 02/27/23 04:11 Micro: Microbiology 02/25/23 00:00 Blood Culture - Preliminary Blood NEGATIVE TO DATE 02/25/23 23:53 Blood Culture - Preliminary Blood NEGATIVE TO DATE A&P Assessment and plan (1) Cellulitis of left leg: (2) Failure of outpatient treatment: Plan Cellulitis of left leg: moderate to large area of cellulitis and phlegmon of the left lower extremity with surrounding cellulitis around the central area of swelling, nonpurulent initially, no fluid collection initial CT. He does report some drainage from proximal aspect of yellowish/greenish fluid overnight. discussed with orthopedics and requested consultation, although patient request as he wants to transfer to continue care at [facility] instead. Discussed with him that transfer may not be immediately available especially if there is no bed. He verbalized understanding still wants to proceed to continue care there. called [facility], no beds available in [place] or [place]. Call back in the afternoon no beds in [place] either, no answer in [place]. For now continue IV antibiotics. He understands that in case of evolution of the infection and abscess, would benefit from drainage. We will have to revisit with [facility] and with him. The area is still significant, and quite significant swelling, at this point not safe to discharge home may be at risk of worsening local infection, distant spread/systemic infection. Failure of outpatient treatment. Obtain wound culture if any additional drainage. Reviewed CBC, CMP. Leukocytosis has resolved. Reviewed blood culture. Reviewed Vanco trough, just borderline high. reassess chemistry, at risk of CHRISTAL. A1c Reviewed. Discussed with case management. Full code Lovenox for DVT prophylaxis Regular diet Attestations Medical Necessity Statement*: Continue admission for assessment management of moderate to large area of cellulitis, central phlegmon, may be progressing to abscess, continue IV antibiotics, may end up requiring I&D. Wants to transfer to [facility], so far no beds available. Diagnoses Cellulitis of left leg L03.116 Failure of outpatient treatment Z78.9
--- NOTE | 2023-02-27 20:09 | PC.NURSE ---
AMA: Went into room to take IV out and have the patient sign AMA paperwork. Patient refused to sign but allowed business writer to remove IV. Ambulated with family out of the building.
[2023-02-28 07:31] LABS: Vitamin B12 (Cobalamin) 638 pg/mL (200-1100)
== END 2023-02-27 20:11 | disposition left against medical advice (07) ==
LOC: ER 02-26 01:03 → MEDSURG 02-26 03:26
PROVIDERS: Emergency Medicine; Student in an Organized Health Care Education/Training Program; Admitting Provider Family Medicine; Emergency Provider Emergency Medicine; Visit Provider Internal Medicine
DX: L03.116 Cellulitis of left lower limb (principal); E66.01 Morbid (severe) obesity due to excess calories; Z68.42 Body mass index [BMI] 45.0-49.9, adult; G47.30 Sleep apnea, unspecified
CPT/HCPCS: 36415; 73701; 80053; 80061; 80202; 82607; 82746; 83036; 83540; 83550; 83605; 83735; 84100; 84145; 84443; 85025; 85651; 86140; 87040; 93971; 94664; 96365; 96367; 96372; 96375; 99285; C9113; G0378; J1650; J1885; J2270; J2405; J2543; J3370; J3372; J7030; J7050; Q9967